=== PATIENT | female | born 1950 | race Two or more races ===

== ENCOUNTER 2020-09-11 12:02 | Emergency (ER) | payer MEDICARE, MEDICAID ==
[~2020-09-11] VITALS: Ht 162.6 cm; Wt 57.0 kg
[2020-09-11 12:15] VITALS: BP 113/59
[2020-09-11] MEDS ORDERED: CYCLOBENZAPRINE 10MG TABLET PO ONE (12:30)
== END 2020-09-11 13:29 | disposition home or self-care (01) ==
LOC: ER 12:02
DX: S70.02XA Contusion of left hip, initial encounter (principal); S80.02XA Contusion of left knee, initial encounter; M19.90 Unspecified osteoarthritis, unspecified site; R56.9 Unspecified convulsions; F32.9 Major depressive disorder, single episode, unspecified; W01.0XXA Fall on same level from slipping, tripping and stumbling without subsequent striking against object, initial encounter; Y93.01 Activity, walking, marching and hiking; Y92.9 Unspecified place or not applicable; Z88.0 Allergy status to penicillin; Z88.6 Allergy status to analgesic agent; Z88.8 Allergy status to other drugs, medicaments and biological substances; Z98.890 Other specified postprocedural states
CPT/HCPCS: 73522; 73562; 99284

== ENCOUNTER 2021-09-30 15:22 | Emergency (ER) | payer MEDICARE, MEDICAID ==
[~2021-09-30] VITALS: Ht 162.6 cm; Wt 54.0 kg
[2021-09-30 15:42] VITALS: BP 124/64
== END 2021-09-30 23:41 | disposition home or self-care (01) ==
LOC: ER 15:22
DX: R03.0 Elevated blood-pressure reading, without diagnosis of hypertension (principal); R53.1 Weakness; F32.9 Major depressive disorder, single episode, unspecified; R56.9 Unspecified convulsions; Z98.890 Other specified postprocedural states
CPT/HCPCS: 93005; 99283

== ENCOUNTER 2022-02-05 10:58 | Emergency (ER) | payer MEDICARE, MEDICAID ==
[~2022-02-05] VITALS: Ht 167.6 cm; Wt 52.0 kg
[2022-02-05] MEDS ORDERED: ACETAMINOPHEN 325MG TABLET PO ONE (12:00)
[2022-02-05] MEDS ORDERED: ACET-2708 MT (16:10)
[2022-02-05 17:11] VITALS: BP 118/64
== END 2022-02-05 19:35 | disposition home or self-care (01) ==
LOC: ER 10:58
DX: S86.811A Strain of other muscle(s) and tendon(s) at lower leg level, right leg, initial encounter (principal); W18.39XA Other fall on same level, initial encounter; Y93.89 Activity, other specified; Y92.89 Other specified places as the place of occurrence of the external cause; Y99.8 Other external cause status; F32.9 Major depressive disorder, single episode, unspecified; Z90.49 Acquired absence of other specified parts of digestive tract; Z87.891 Personal history of nicotine dependence; Z88.0 Allergy status to penicillin
CPT/HCPCS: 73562; 73590; 73610; 73630; 99285